=== PATIENT | female | born 1930 | race Caucasian/White ===

== ENCOUNTER → 2017-04-14 | Outpatient (CLI) | payer MEDICARE, BC ==
[2006-03-11 03:55] VITALS: TEMP 99
== END ==
LOC: MC.RAD 13:29
DX: Z12.31 Encounter for screening mammogram for malignant neoplasm of breast (principal)

== ENCOUNTER → 2018-04-27 | Outpatient (CLI) | payer MEDICARE, BC ==
[2006-03-11 03:55] VITALS: TEMP 99
== END ==
LOC: MC.RAD 12:52
DX: Z12.31 Encounter for screening mammogram for malignant neoplasm of breast (principal)

== ENCOUNTER 2019-01-20 10:26 | Inpatient (IN) | payer MEDICARE, BC ==
[2019-01-20] VITALS (9 sets, daily range): BP systolic 148–175; BP diastolic 57–85; PULSE 62–77; TEMP 98.2
[~2019-01-20] VITALS: Ht 170.2 cm; Wt 67.4 kg
[2019-01-20 11:15] LABS: ALANINE AMINOTRANSFERASE 22 U/L (9-52); ALBUMIN 4.2 gm/dL (3.5-5.0); ALKALINE PHOSPHATASE 172 U/L (50-136); ANION GAP 12 mmol/L (7-16); AST,SGOT 34 U/L (15-37); BILIRUBIN,TOTAL 0.4 mg/dL (0.0-1.0); BLOOD UREA NITROGEN 28 mg/dL (7-17); C-REACTIVE PROTEIN < 0.5 mg/dL (0.0-0.9); CALCIUM 9.4 mg/dL (8.4-10.2); CARBON DIOXIDE 30 mmol/L (22-30); CHLORIDE 96 mmol/L (98-107); CREATININE, serum 0.81 (0.52-1.25); GLUCOSE 260 mg/dL (74-106); LIPASE 40 U/L (23-300); POTASSIUM 4.2 mmol/L (3.4-5.0); SODIUM 138 mmol/L (137-145); TOTAL PROTEIN 7.6 gm/dL (6.4-8.2)
[2019-01-20 11:17] LABS: BASO % 0.3 % (0.0-2.0); EOS % 0.4 % (0-4.0); GRAN # 8.2 (1.4-6.5); GRAN % 82.8 % (42.2-75.2); HEMATOCRIT 37.5 % (37.0-47.0); HEMOGLOBIN 12.4 g/dl (12.5-16.0); LYMPH # 1.2 (1.2-3.4); LYMPH % 11.6 % (20.0-51.0); MEAN CELL VOLUME 93 fl (80.0-100.0); MEAN CORPUSCULAR HEMOGLOBIN 31 pg (27.0-31.0); MEAN CORPUSCULAR HGB CONC 33 g/dl (33.0-37.0); MEAN PLATELET VOLUME 10.5 fl (7.4-10.4); MONO # 0.4 (0.1-0.6); MONO % 4.4 % (1.7-9.3); PLATELET COUNT 207 K/mm3 (130-400); RED BLOOD COUNT 4.02 M/mm3 (4.10-5.30); REDCELL DISTRIBUTION WIDTH-CV 13.2 % (11.5-14.5)
[2019-01-20] MEDS ORDERED: LIPITOR20 MG PO (12:02)
[2019-01-20] MEDS ORDERED: TENORMIN 5050 MG/TAB PO (12:02)
[2019-01-20] MEDS ORDERED: STIOLTO RESPIMAT4 GM IH (12:02)
[2019-01-20] MEDS ORDERED: NEXIUM 40MG40 MG PO (12:03)
[2019-01-20] MEDS ORDERED: DIOVAN/HCT 12.51 TA1 PO (12:03)
[2019-01-20] MEDS ORDERED: JANUMET 500 MG-1 TA1 PO (12:04)
[2019-01-20] MEDS ORDERED: DIABETA 5MG5 MG/TAB PO (12:04)
[2019-01-20] MEDS ORDERED: CALCIUM 600MG+D1 TAB PO (12:05)
[2019-01-20] MEDS ORDERED: PROBIOTIC FORMU1 CAP PO (16:16)
[2019-01-20] MEDS ORDERED: ONE DAILY MULTI1 TA1 PO (16:17)
[2019-01-20] MEDS ORDERED: [UNRECOGNIZED DRUG - OTHER] PO (16:19)
--- NOTE | 2019-01-20 16:43 | NUR ---
Patient recieved post op to room 346 from [facility] [place]. Report was also obtained from ER nurse. Patient very alert & oriented. Family at bedside. Only complaint for pain is of her lip which appears to have a pressure abrasion from intubation. Abdomen soft with lap site times 3 bandaids intact. Scds ble. Vss on O2. Tolerating clears without nausea. Scds ble. Will montior.
--- NOTE | 2019-01-20 18:26 | NUR ---
Patietn continues to do well with minimal complaints or needs. Visitiing with family at bediside. Tolerating broth & tea. Adequate urine output. Vss, slightly hypertensive. Will report off to night nurse.
--- NOTE | 2019-01-20 23:00 | NUR ---
Attempted to help patient to get up to side of bed but she did not tolerate it. She was feeling dizzy. Patient denies pain and nausea. Cervantes secured to leg, urine pale yellow and clear. Lapsites are C/D/I. Patient has been tolerating clear liquids well. No other changes at this time. Call light within reach.
[2019-01-21 00:21] VITALS: BP 133/48; PULSE 64; TEMP 98.2
[2019-01-21 05:30] VITALS: BP 129/46; PULSE 52; TEMP 98.1
--- NOTE | 2019-01-21 06:30 | NUR ---
Patient did well during the night. She slept most the night. No complaints of pain. No other changes at this time. Call light within reach.
--- NOTE | 2019-01-21 08:00 | NUR ---
Patient resting in bed at this time. Patient is alert and oriented, answers questions appropriately. Patient denies pain this morning, states she is feeling very well. Tolerating clear liquid diet, recieved order to advance to carb control. Patient will order breakfast and will monitor for nausea. Patient denies needs at this time, call light within reach.
[2019-01-21 08:50] LABS: BASO % 0.3 % (0.0-2.0); EOS # 0.1 (0.0-0.7); EOS % 0.9 % (0-4.0); GRAN # 4.7 (1.4-6.5); GRAN % 68.7 % (42.2-75.2); HEMOGLOBIN 10.7 g/dl (12.5-16.0); LYMPH # 1.3 (1.2-3.4); LYMPH % 18.7 % (20.0-51.0); MEAN CELL VOLUME 95 fl (80.0-100.0); MEAN CORPUSCULAR HEMOGLOBIN 31 pg (27.0-31.0); MEAN CORPUSCULAR HGB CONC 32 g/dl (33.0-37.0); MEAN PLATELET VOLUME 10.6 fl (7.4-10.4); MONO # 0.8 (0.1-0.6); MONO % 11.1 % (1.7-9.3); PLATELET COUNT 178 K/mm3 (130-400); RED BLOOD COUNT 3.49 M/mm3 (4.10-5.30); REDCELL DISTRIBUTION WIDTH-CV 13.4 % (11.5-14.5)
[2019-01-21 08:59] VITALS: BP 146/55; PULSE 97; TEMP 98.4
[2019-01-21 09:03] LABS: CALCIUM 8.4 mg/dL (8.4-10.2); CREATININE, serum 0.79 (0.52-1.25); POTASSIUM 4.1 mmol/L (3.4-5.0)
[2019-01-21 09:04] LABS: HEMATOCRIT 33.2 % (37.0-47.0)
--- NOTE | 2019-01-21 10:17 | NUR ---
Plan: Patient plans to return home with grandson as care support and DTR Jyothi Titus Assess: SW met with patient in the room to discuss dc plan. Pt indicated that she still drives but limited and does not require any DME. Pt denies home health care and reports that he DTR is close by if she needed more assistance. Patient reports PCP as Dr. Arnett with upcoming jacob in January. Patient reports that use of [facility] for RX. DPOA is DTR Jyothi Titus and Son Guido Garcia. Pt denies having any phone numbers because her DTR has her phone. Patient denies having any needs at this time. Action: SW educated patient of resources, no needs anticipated. Will follow.
[2019-01-21 12:32] VITALS: BP 164/59; PULSE 54; TEMP 98.2
--- NOTE | 2019-01-21 13:15 | NUR ---
Removed graff per order. 3ml of water removed from balloon. Urine was pale yellow. Graff removed without complication, patient educated to call for assistance to get up to void. Patient denies needs at this time, call light within reach.
[2019-01-21 16:09] VITALS: BP 125/47; PULSE 56; TEMP 97.8
[2019-01-21 20:00] VITALS: BP 142/66; PULSE 66; TEMP 98.4
[2019-01-22 00:30] VITALS: BP 135/62; PULSE 56; TEMP 98.6
[2019-01-22 04:00] VITALS: BP 156/68; PULSE 77; TEMP 98.3
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
[2019-01-22 07:57] VITALS: BP 188/63; PULSE 55; TEMP 98.7
--- NOTE | 2019-01-22 08:00 | NUR ---
Patient resting in bed eating breakfast at this time. Patient is alert and oriented, answers questions appropriately. Patient denies pain at this time. Is ambulating to bathroom with no problems. Call light within reach.
--- NOTE | 2019-01-22 12:00 | NUR ---
Patient and family given discharge teaching. Instructed to call [facility] office tomorrow to make follow up appointment. INT removed from left forearm, hemostasis achieved. Patient walked out and helped into private vehicle.
== END 2019-01-22 12:15 | disposition home or self-care (01) | DRG 337 ==
LOC: COL.ER 10:26 → SURG 14:30
PROVIDERS: Emergency Medicine; ADMIT Surgery
PROC: 0WJJ4ZZ Inspection of Pelvic Cavity, Percutaneous Endoscopic Approach (ICD-10-PCS; 2019-01-20)
PROC: 0DN84ZZ Release Small Intestine, Percutaneous Endoscopic Approach (ICD-10-PCS; principal; 2019-01-20 14:00)
DX: K56.50 Intestinal adhesions [bands], unspecified as to partial versus complete obstruction (principal); K44.9 Diaphragmatic hernia without obstruction or gangrene; I10 Essential (primary) hypertension; E11.9 Type 2 diabetes mellitus without complications; E78.00 Pure hypercholesterolemia, unspecified; Z88.8 Allergy status to other drugs, medicaments and biological substances; Z79.84 Long term (current) use of oral hypoglycemic drugs
CPT/HCPCS: A4314; A9284; J0690; J2370; J2405; J2704; J3010; J7030; J7050; Q9967